=== PATIENT | female | born 1970 | race Caucasian/White ===

== ENCOUNTER 2018-12-31 12:26 | Emergency (ER) | payer OTHER ==
[~2018-12-31] VITALS: Ht 160 cm; Wt 64.9 kg
[2018-12-31] MEDS ORDERED: NKM (12:46)
--- NOTE | 2018-12-31 13:20 | Emergency Room Report ---
History of Present Illness General Chief Complaint: Vaginal Source: Patient Present Illness HPI 48-year-old female patient presents the ER complaining of foul-smelling vaginal discharge for the past 2 months. States discharge is "white and clumpy". Reports 1 month ago was seen by a clinic near where she lives and had testing and treatment done during that time. Patient has copy of lab results which show she was positive for clue cells and bacteria, no yeast infection, no trichomonas, negative for gonorrhea, chlamydia, syphilis, HIV. Reports that she has been treated with azithromycin, ceftriaxone, fluconazole, metronidazole oral and metronidazole gel, fluconazole, doxycycline, clindamycin. Reports symptoms have persisted since that time. Reports dysuria during this time. Denies hematuria. Denies fever, chest pain, shortness of breath, vomiting, abdominal pain, flank pain. Reports has not seen [employer] specialist. Reports last sexual activity was a week ago and a week ago before that as well. Reports 3 sexual partners, states having intercourse with the 2 male sexual partners and using protection with them however with the 1 female sexual partner she does not. Denies history of diabetes. Denies pelvic pressure lesions. Denies concern for , reports history of tubal ligation " years ago". Allergies: Coded Allergies: AZITHROMYCIN (Verified Allergy, Unknown, 12/31/18) Patient History Past Medical History: see triage record Last Menstrual Period: 7 month ago Reviewed Nursing Documentation: PMH: Agreed; PSxH: Agreed Nursing Documentation-PM Past Medical History: No History, Except For Review of Systems All Other Systems: negative except mentioned in HPI Physical Exam Vital Signs Date Time Temp Pulse Resp B/P (MAP) Pulse Ox O2 Delivery O2 Flow Rate FiO2 12/31/18 12:42 98.2 82 14 118/77 96 Room Air Sp02 EP Interpretation: reviewed, normal General Appearance: well appearing, no apparent distress, alert, GCS 15, non- toxic Head: normocephalic, atraumatic Eyes: bilateral eye normal inspection, bilateral eye PERRL ENT: hearing grossly normal, normal pharynx, no angioedema, normal voice, uvula midline, moist mucus membranes Neck: full range of motion, no bony tend Respiratory: lungs clear, normal breath sounds, no rhonchi, no respiratory distress, no accessory muscle use, no wheezing, speaking full sentences Cardiovascular #1: regular rate, rhythm, no edema Gastrointestinal: non tender, soft, no mass, non-distended, no guarding, no rebound Genitourinary: no CVA tenderness, ext genitalia/vag normal, no vertebral tenderness, other - small amount of white discharge noted in vaginal vault and cervix, no erythema or edema no foreign body, Musculoskeletal: back normal, digits/nails normal, gait/station normal, normal range of motion, non-tender Neurologic: alert, oriented x3, responsive, motor strength/tone normal, sensory intact Skin: no rash Medical Decision Making PA Attestation Dr. Sheehan is my supervising Physician whom patient management has been discussed with. Diagnostic Impression: Primary Impression: UTI (urinary tract infection) Additional Impression: Vaginal discharge ER Course Pt. presents to the ED c/o vaginal discharge and dysuria. Ddx considered but are not limited to cystitis, pyelonephritis, PID, gonorrhea, chlamydia, yeast infection, BV, trichomonas. Vital signs: are WNL, pt. is afebrile ER COURSE: Pelvic exam performed with female general ii farmworker present. Small amount of white discharge noted in vaginal vault, sample taken for wet mount. No cervical motion tenderness, low suspicion for PID. UA leukocyte esterase, few white blood cells, patient symptomatic, white blood cells and bacteria noted on wet mount as well, will provide patient antibiotics to treat for UTI. Wet mount occasional white blood cells and bacteria, no trichomonas, no yeast, no clue cells. Patient had lab results showing negative gonorrhea and chlamydia, no STI, does not require repeat treatment. Follow-up with [facility] specialist. Provided with name of [employer] specialist. Call to schedule appointment. Provide with Pyridium for pain symptoms. ER precautions given. DISCHARGE: At this time pt is stable for d/c to home. Patient is resting comfortably, in no acute distress, nontoxic appearing, talking without difficulty. Patient to take medications as instructed Will provide with patient care instructions and any necessary prescriptions. Care plan and follow-up instructions provided. Patient instructed to follow-up with primary care provider in 3 - 5 days. Patient questions asked and answered. Patient reports understanding and agreement to treatment plan. ER precautions given. Patient instructed to return to ER immediately for any new or worsening of symptoms including but not limited to increasing SOB, persistent fever, chest pain, intractable vomiting. - Please note that this Emergency Department Report was dictated using Dragon mid level clinician technology software, occasionally this can lead to erroneous entry secondary to interpretation by the dictation equipment. Labs Test 12/31/18 13:15 Urine Color Yellow Urine Appearance Clear Urine pH 8 (4.5-8.0) Urine Specific [place] 1.010 (1.005-1.035) Urine Protein 2+ (NEGATIVE) Urine Glucose (UA) Negative (NEGATIVE) Urine Ketones Negative (NEGATIVE) Urine Blood Negative (NEGATIVE) Urine Nitrite Negative (NEGATIVE) Urine Bilirubin Negative (NEGATIVE) Urine Urobilinogen 4 MG/DL (0.0-1.0) Urine Leukocyte Esterase 1+ (NEGATIVE) Urine RBC 0 /HPF (0 - 2) Urine WBC 0-2 /HPF (0 - 2) Urine Squamous Epithelial Cells Few /LPF (NONE/OCC) Urine Bacteria Few /HPF (NONE) Urine HCG, Qualitative Negative (NEGATIVE) Last Vital Signs Date Time Temp Pulse Resp B/P (MAP) Pulse Ox O2 Delivery O2 Flow Rate FiO2 12/31/18 12:42 98.2 82 14 118/77 96 Room Air Disposition: HOME, SELF-CARE Condition: Stable Scripts Phenazopyridine Hcl* (PYRIDIUM*) 100 Mg Tablet 100 MG ORAL THREE TIMES A DAY, #15 TAB Prov: Glenn Ponce 12/31/18 Cephalexin* (KEFLEX*) 500 Mg Capsule 500 MG ORAL EVERY 12 HOURS, #14 CAP 0 Refills Prov: Glenn Ponce 12/31/18 Patient Instructions: Urinary Tract Infection, [id number], Vaginal Yeast Infection, Adult Additional Instructions: Followup with primary care provider and followup with and./or OBGYN. Drink plenty of fluids. Take medications as directed. Pyridium has SE of turning urine orange. Patient questions asked and answered. ER precautions given, patient instructed to return to ER immediately for any new or worsening of symptoms. Glenn Ponce Dec 31, 2018 13:20
[2018-12-31 13:21] VITALS: BP 118/77
[2018-12-31 13:28] LABS: APPEARANCE,URINE CLEAR; BILIRUBIN, URINE NEGATIVE (NEGATIVE); GLUCOSE, URINE (UA) NEGATIVE (NEGATIVE); KETONES,URINE NEGATIVE (NEGATIVE); LEUKOCYTE ESTERASE ,URINE 1+ (NEGATIVE); NITRITE,URINE NEGATIVE (NEGATIVE); PH,URINE 8 (4.5-8.0); PROTEIN,URINE 2+ (NEGATIVE); UROBILINOGEN,URINE 4 MG/DL (0.0-1.0)
[2018-12-31 13:36] LABS: COLOR,URINE YELLOW
[2018-12-31] MEDS ORDERED: CEPHALEXIN500 MG ORAL (14:10)
[2018-12-31] MEDS ORDERED: PHENAZOPYRIDIN100 MG ORAL (14:10)
[2018-12-31 14:35] VITALS: BP 133/65
== END 2018-12-31 14:35 | disposition home or self-care (01) ==
LOC: EMR 12:59
DX: N39.0 Urinary tract infection, site not specified (principal); N89.8 Other specified noninflammatory disorders of vagina; Z88.1 Allergy status to other antibiotic agents
CPT/HCPCS: 81003; 81025; 82962; 87210; 99283